=== PATIENT | female | born 1970 | race Caucasian/White ===

== ENCOUNTER → 2016-08-11 | Outpatient (CLI) | payer MEDICARE, OTHER ==
[~2016-08-11] MED LIST: ALBUTEROL17 GM INH; CLEOCIN150 MG PO; DIFLUCAN100 MG PO; DOXYCYCLINE150 MG PO; IBUPROFEN800 MG PO; LORTAB 5/500 TA1 TA2 PO; MOTRIN600 M1 PO; PREDNISONE PO; PROZAC PO; ZITHROMAX PO; ZOFRAN PO
--- NOTE | ~2016-08-11 | US98 ---
[facility] A Service of [facility] RADIOLOGY TEXT RESULTS PATIENT: NAGA JENKINS LOCATION: [facility] : 74 UNIT #: [id number] AGE: [address]: Melissa Sanchez SEX: F ORDER DR: [id number] [facility] [address] [place], [place] [address] [id number] O MR#: [id number] Acc #: [id number] NAME: NAGA JENKINS : 1970 SEX: F STUDY DATE/TIME: 08/11/2016 11:25 UNIT: [facility] ROOM: STUDY DESCRIPTION: US Pelvic Non-OB Complete Attending Physician: Melissa Sanchez A.P.R.N. Ordering Physician: Melissa Sanchez A.P.R.N. Primary Care Physician: Melissa Sanchez A.P.R.N. MEDICAL IMAGING REPORT This report is preliminary unless electronic signature is present EXAM Transabdominal and transvaginal pelvic ultrasound 08/11/2016 HISTORY Pelvic pain right side for 6 months. Sharp, throbbing pain. FINDINGS Transabdominal and transvaginal pelvic ultrasound was performed. Endovaginal ultrasound was performed for attempted better visualization of the adnexal structures. The bladder is normal in appearance. The uterus measures 6.1 cm craniocaudal x 3.3 cm AP x 5.3 cm transverse. The endometrial stripe measures 8 mm. There is a 1.6 cm fibroid within the uterine fundus. The left ovary measured 2.3 cm x 1.7 cm x 2.4 cm and contains a 1.7 cm prominent simple follicle. The right ovary measured 1.7 cm x 1.6 cm x 2 cm. There is no adnexal mass. Color flow Doppler images show normal blood flow to both ovaries. There is no free fluid in the pelvis. IMPRESSION 1. 1.7 cm prominent simple follicle on the left ovary. 2. 1.6 cm fibroid within the uterine fundus. Dictated by... Joey Bauer M.D. THIS IS AN ELECTRONICALLY VERIFIED REPORT Joey Bauer M.D. at 08/12/2016 5:10 PM DAVID/madina TD: 08/12/2016 09:40 [facility] A Service of [facility] / [facility] RADIOLOGY TEXT RESULTS PATIENT: NAGA JENKINS LOCATION: [facility] #: [id number] : 74 UNIT #: [id number] AGE: [address]: Melissa Sanchez SEX: F ORDER DR: SAGAR #: [id number] MEDICAL IMAGING REPORT Page 1 of 1 COPY
== END | disposition home or self-care (01) ==
LOC: CWCC 11:02
DX: R10.2 Pelvic and perineal pain (principal); N83.02 Follicular cyst of left ovary; D25.9 Leiomyoma of uterus, unspecified; N92.6 Irregular menstruation, unspecified; R39.15 Urgency of urination; R10.84 Generalized abdominal pain; Z72.0 Tobacco use; E78.5 Hyperlipidemia, unspecified; K58.9 Irritable bowel syndrome, unspecified; G43.909 Migraine, unspecified, not intractable, without status migrainosus; Z79.899 Other long term (current) drug therapy; Z88.5 Allergy status to narcotic agent; Z88.4 Allergy status to anesthetic agent; Z88.8 Allergy status to other drugs, medicaments and biological substances
CPT/HCPCS: 76830; 76856

== ENCOUNTER → 2016-11-21 | Outpatient (CLI) | payer MEDICARE, OTHER ==
--- NOTE | ~2016-11-21 | CT2 ---
[facility] A Service of [facility] RADIOLOGY TEXT RESULTS PATIENT: NAGA JENKINS LOCATION: [facility] : 74 UNIT #: [id number] AGE: [address]: Klarissa Ortega APRN SEX: F ORDER DR: [id number] [place], [place] [address] [id number] O MR#: [id number] Acc #: [id number] NAME: NAGA JENKINS : 1970 SEX: F STUDY DATE/TIME: 11/21/2016 13:50 UNIT: [facility] ROOM: STUDY DESCRIPTION: CT Abd and Pelv W Cont Attending Physician: Klarissa Ortega Aprn Referring Physician: Klarissa Ortega Aprn Ordering Physician: Klarissa Ortega Aprn Primary Care Physician: Olga Min M.D. MEDICAL IMAGING REPORT This report is preliminary unless electronic signature is present EXAM Abdomen and pelvis CT with contrast HISTORY Mid to right-sided abdominal pain and nausea chronically over the past year with bloating. TECHNIQUE Axial images were obtained with oral and intravenous contrast. 100 mL of Isovue was used. This CT exam was performed with one or more of the following radiation dose reduction techniques: automatic exposure control, adjustment of mA and/or kV according to patient size, and iterative reconstruction. COMPARISON 06/28/2013 FINDINGS The liver, spleen and pancreas are unremarkable. There are three nonobstructing kidney stones on the right. There is a complex 2.0 x 4.0 mm stone in an upper pole samuel, a 2.0 mm stone in the mid portion the kidney and a 6.0 mm stone in a lower pole samuel. No ureteral stones are seen. There is no evidence of retroperitoneal adenopathy or ascites. No distended bowel loops are seen. The appendix is unremarkable. Scans into the pelvis show a right-sided uterine mass likely representing a fibroid measuring 2.0 cm in diameter. IMPRESSION No acute or inflammatory change is seen in the abdomen or pelvis. There are three small nonobstructing right-sided kidney stones. Dictated by... [facility] A Service of [facility] RADIOLOGY TEXT RESULTS PATIENT: NAGA JENKINS LOCATION: [facility] : 74 UNIT #: [id number] AGE: [address]: Klarissa Ortega APRN SEX: F ORDER DR: Rajiv Villalta M.D. THIS IS AN ELECTRONICALLY VERIFIED REPORT Rajiv Villalta M.D. at 11/22/2016 5:00 PM WILI/yoan TD: 11/22/2016 15:22 JOB #: [id number] MEDICAL IMAGING REPORT Page 1 of 1 COPY
== END | disposition home or self-care (01) ==
LOC: CCAT 11:24
DX: R14.0 Abdominal distension (gaseous) (principal); R10.9 Unspecified abdominal pain; R11.0 Nausea; N20.0 Calculus of kidney
CPT/HCPCS: 74177; Q9967